=== PATIENT | female | born 1960 | race African-American/Black ===

== ENCOUNTER 2019-07-21 09:59 | Inpatient (IN) | payer OTHER ==
[~2019-07-21] VITALS: Ht 152.4 cm; Wt 79.8 kg
[~2019-07-21 09:59] MED LIST: ALBUTEROL INHAL17 GM INH; ANTIVERT25 MG PO; CELEXA40 MG; FLEXERIL PO; HYDROCHLOROTHIA25 M2 PO; LISINOPRIL20 MG PO; NORCO 5-325 TA1 EACH PO; PREDNISONE 20 M20 M1 PO; PREDNISONE5 GM; VENTOLIN HFA 1818 GM INH; ZIAC 10/6.25 MG10 MG PO; ZOFRAN ODT4 MG PO; ZPAK PO
[2019-07-21 10:04] VITALS: BP 167/96
[2019-07-21] MEDS ORDERED: SINGULAIR 10 MG10 M1 PO (10:10)
[2019-07-21 10:37] LABS: ABSOLUTE BASOPHILS 0.1 thou/uL (0.0-0.2); ABSOLUTE EOSINOPHILS 0.1 thou/uL (0.0-0.7); ABSOLUTE LYMPHOCYTES 1.7 thou/uL (0.8-5.3); ABSOLUTE MONOCYTES 0.6 thou/uL (0.0-1.2); ABSOLUTE NEUTROPHILS 2.9 thou/uL (1.6-8.1); BASOPHILS 1.2 %; EOSINOPHILS 2.8 %; HEMATOCRIT 41.6 % (37.0-47.0); LYMPHOCYTES 31.2 %; MCH 31.7 pg (26.0-34.0); MCHC 33.7 g/dL (28.0-37.0); MCV 94.1 fL (80.0-100.0); MONOCYTES 11.3 %; MPV 7.2 fl. (7.2-11.1); NUCLEATED RBCS 0 /100WBC; PLATELET COUNT* 270 thou/uL (150-400); POLYS 53.5 %; RBC 4.42 mil/uL (4.20-5.00); RDW-CV 12.6 % (10.5-14.5); WBC 5.3 thou/uL (4.0-11.0)
[2019-07-21 10:45] LABS: CALCIUM 9.1 mg/dL (8.5-10.1); CREATININE 0.8 mg/dL (0.6-1.3); POTASSIUM 3.6 mmol/L (3.5-5.1)
[2019-07-21 10:46] LABS: APTT 28.5 Seconds (25.0-31.3); PROTIME 10.4 Seconds (9.20-11.50)
[2019-07-21 11:00] LABS: ALBUMIN 3.4 g/dL (3.4-5.0); CK-MB MASS 1.5 ng/mL (<0.5-3.6); TOTAL BILIRUBIN 0.3 mg/dL (<0.1-1.0); TOTAL PROTEIN 7.5 g/dL (6.4-8.2)
[2019-07-21 11:13] LABS: URINE BILIRUBIN NEGATIVE (Negative); URINE BLOOD NEGATIVE (Negative); URINE CLARITY CLEAR; URINE COLOR YELLOW; URINE GLUCOSE-RANDOM NEGATIVE (Negative); URINE KETONES NEGATIVE (Negative); URINE LEUKOCYTES-REFLEX 1+ (Negative); URINE NITRITE-REFLEX NEGATIVE (Negative); URINE PROTEIN NEGATIVE (Negative); URINE SPECIFIC GRAVITY 1.015 (1.005-1.030); URINE UROBILINOGEN 0.2 E.U./dl (0.2-1.0)
[2019-07-21 11:25] LABS: SQUAMOUS 4-10 Moderate /LPF (0-3); URINE WBC-REFLEX 0-5 Rare /HPF (0-5)
[2019-07-21 11:26] LABS: BACTERIA-REFLEX >30 Many /HPF (None Seen); CASTS None Seen /LPF (None Seen); CRYSTALS None Seen /LPF (None Seen); MUCUS None Seen strn/LPF (None Seen); URINE RBC None Seen /HPF (0-2)
--- NOTE | 2019-07-21 12:14 | EKG ---
[place] [address] ELECTROCARDIOGRAM REPORT Name: BEBA GOODEN Room: [place] [address] ADM IN [facility]#: [id number] Admission: 07/21/19 Attend Phys: Wilian Agosto Discharge: Date of : 60 Date of Service: 07/21/19 [facility] Report #: [id number] THIS REPORT FOR: //name// [facility] ED Test Date: 2019-07-21 Test Time: 10:38:46 Pat Name: BEBA GOODEN Department: Room: [facility] Gender: F [employer]: [facility] : 1960 Requested By: Arvind Garzon Order Number: [id number] MD: Elia Harper Measurements Intervals [place] Rate: 73 P: 42 NM: 168 QRS: -53 QRSD: 115 T: 0 QT: 423 QTc: 467 Interpretive Statements Sinus rhythm Nonspecific IVCD with LAD Inferior infarct, old Compared to ECG 03/17/2016 07:22:26 Myocardial infarct finding still present Electronically Signed On 07-21-2019 12:12:52 [employer] [place] [employer] by Elia Harper [email or web address] <ELECTRONICALLY SIGNED> By: Elia Harper MD, [facility] 07/21/19 1212 1038 1038 Elia Harper MD, [facility] /EPI
[2019-07-21 15:56] VITALS: BP 137/67
--- NOTE | 2019-07-21 16:52 | 2DMMODE ---
[place] [address] 2 D/M-MODE ECHOCARDIOGRAM Name: BEBA GOODEN Room: [place] [address] ADM IN Sid#: [id number] Admission: 07/21/19 Attend Phys: Wilian Agosto Discharge: Date of : 60 Date of Service: 07/21/19 1651 Report #: [id number] THIS REPORT FOR: cc: Harvey Castro MD, Bruce D. MD Blick,Elia Cook MD [facility] ~ APPROVED REPORT Study performed: 07/21/2019 15:01:42 EXAM: Comprehensive 2D, Doppler, and color-flow Echocardiogram Patient Location: In-Patient Room #: er Status: routine BSA: 1.77 HR: 72 bpm BP: 168/81 mmHg Rhythm: NSR Other Information Study Quality: Good Indications CVA/TIA Echo Enhancing Agent Indication: Rule out Shunt Agent(s) / Amount(s) Used: Agitated Saline 10 cc 2D Dimensions IVSd: 9.57 (7-11mm) LVOT Diam: 19.51 (18-24mm) LVDd: 44.21 mm PWd: 8.62 (7-11mm) Ascending Ao: 25.50 (22-36mm) LVDs: 23.25 (25-40mm) Aortic Root: 27.35 mm Volumes Left Atrial Volume (Systole) LA ESV Index: 24.60 mL/m2 Aortic Valve AoV Peak Niall.: 1.34 m/s AO Peak Gr.: 7.23 mmHg LVOT Max P.77 mmHg AO Mean Gr.: 3.48 mmHg LVOT Mean P[place]41 [place] [address] 2 D/M-MODE ECHOCARDIOGRAM Name: BEBA GOODEN Room: [address] IN [facility]#: [id number] Admission: 07/21/19 Attend Phys: Wilian Agosto Discharge: Date of : 60 Date of Service: 07/21/19 1651 Report #: [id number] LVOT Max V: 1.20 m/s AO V2 VTI: 24.27 cm LVOT Mean V: 0.70 m/s KASSI (VTI): 2.67 cm2 LVOT V1 VTI: 21.67 cm Mitral Valve E/A Ratio: 0.64 MV Decel. Time: 337.73 ms MV E Max Niall.: 0.61 m/s MV PHT: 97.94 ms MVA (PHT): 2.25 cm2 TDI E/Lateral E': 6.10 E/Medial E': 5.55 Medial E' Niall.: 0.11 m/s Lateral E' Niall.: 0.10 m/s Pulmonary Valve PV Peak Niall.: 0.72 m/s PV Peak Gr.: 2.06 mmHg Left Ventricle The left ventricle is normal size. There is normal LV segmental wall motion. There is normal left ventricular wall thickness. Left ventricular systolic function is normal. The left ventricular ejection fraction is within the normal range. LVEF is 60-65%. Grade I - abnormal relaxation pattern. Right Ventricle The right ventricle is normal size. The right ventricular systolic function is normal. Atria The left atrium size is normal. The interatrial septum is intact with no evidence for an atrial septal defect. The right atrium size is normal. Aortic Valve The Aortic valve is sclerotic. No aortic regurgitation is present. There is no aortic valvular stenosis. Mitral Valve The mitral valve is normal in structure. There is no mitral valve regurgitation noted. No evidence of mitral valve stenosis. Tricuspid Valve The tricuspid valve is normal in structure. There is no tricuspid [place] [address] 2 D/M-MODE ECHOCARDIOGRAM Name: ELOISE GOODENORALeonor Powell Room: [address] IN [facility]#: [id number] Admission: 07/21/19 Attend Phys: Wilian Agosto Discharge: Date of : 60 Date of Service: 07/21/19 1651 Report #: [id number] Pulmonic Valve The pulmonary valve is normal in structure. Trace pulmonic regurgitation. Great Vessels The aortic root is normal in size. IVC is normal in size and collapses >50% with inspiration. Pericardium There is no pericardial effusion. <Conclusion> LVEF is 60-65%. The Aortic valve is sclerotic. The interatrial septum is intact with no evidence for an atrial septal defect. <ELECTRONICALLY SIGNED> By: Elia Harper MD, FACC 07/21/19 165 [id number] 165 Elia Harper MD, FACC /INF
[2019-07-21 20:00] VITALS: BP 112/67
[2019-07-21 20:05] VITALS: BP 132/61
[2019-07-22] VITALS: BP 136/61
[2019-07-22 02:06] LABS: GLYCOHEMOGLOBIN (HGB A1C) 5.5 % (4.8-5.6)
[2019-07-22 04:00] VITALS: BP 138/65
[2019-07-22 05:50] LABS: CHOLESTEROL 213 mg/dL (<200); HDL CHOLESTEROL 54 mg/dL (>40); LDL CHOLESTEROL 149 mg/dL (<100); TC:HDL 3.9 Ratio (Not establshd); TRIGLYCERIDE 50 mg/dL (<150); VLDL 10 mg/dL (<40)
[2019-07-22 05:52] LABS: SERUM ASSESSMENT Clear
[2019-07-22 08:00] VITALS: BP 150/84
[2019-07-22 11:12] VITALS: BP 117/51
--- NOTE | 2019-07-22 11:13 | EKG ---
[place] [address] ELECTROCARDIOGRAM REPORT Name: BEBA GOODEN Room: [address] ADM IN .R.#: [id number] Admission: 07/21/19 Attend Phys: Wilian Agosto Discharge: Date of : 60 Date of Service: 07/22/19 0908 Report #: [id number] THIS REPORT FOR: //name// [facility] Test Date: 2019-07-22 Test Time: 09:08:52 Pat Name: BEBA GOODEN Department: Room: [facility] Gender: F [employer]: DEV : 1960 Requested By: Wilian Agosto Order Number: [id number] Reading MD: Elia Harper Measurements Intervals [place] Rate: 74 P: 70 MN: 159 QRS: -63 QRSD: 123 T: -40 QT: 401 QTc: 445 Interpretive Statements Sinus rhythm Probable left atrial enlargement Nonspecific IVCD with LAD Nonspecific T abnormalities, diffuse leads Compared to ECG 07/21/2019 10:38:46 no change Electronically Signed On 07-22-2019 11:12:46 [employer] by Elia Harper [email or web address] <ELECTRONICALLY SIGNED> By: Elia Harper MD, [facility] 07/22/19 1112 0908 0908 Elia Harper MD, [facility] /EPI
[2019-07-22 17:50] VITALS: BP 128/85
[2019-07-22 19:30] VITALS: BP 113/62
[2019-07-23] VITALS: BP 123/49
[2019-07-23 04:24] VITALS: BP 113/57
[2019-07-23 07:45] VITALS: BP 128/77
[2019-07-23 12:12] VITALS: BP 125/53
[2019-07-23] MEDS ORDERED: COREG6.25 MG PO (13:46)
[2019-07-23] MEDS ORDERED: LIPITOR40 MG PO (13:46)
[2019-07-23] MEDS ORDERED: LOTENSIN20 MG PO (13:46)
[2019-07-23] MEDS ORDERED: KEFLEX500 M1 PO (13:46)
[2019-07-23 14:43] VITALS: BP 125/53
[2019-07-23] MEDS ORDERED: TYLENOL325 MG PO (14:54)
[2019-07-23] MEDS ORDERED: ADULT LOW DOSE81 MG PO (14:57)
== END 2019-07-23 15:27 | disposition home or self-care (01) | DRG 69 ==
LOC: M.ERS 09:59 → M.TBA-ER 11:24 → M.2W 11:24
PROVIDERS: Family Medicine; ADMIT Internal Medicine
DX: G45.9 Transient cerebral ischemic attack, unspecified (principal); J45.901 Unspecified asthma with (acute) exacerbation; I10 Essential (primary) hypertension; F32.9 Major depressive disorder, single episode, unspecified; F41.9 Anxiety disorder, unspecified; I16.0 Hypertensive urgency; E78.00 Pure hypercholesterolemia, unspecified; G43.909 Migraine, unspecified, not intractable, without status migrainosus; Z90.49 Acquired absence of other specified parts of digestive tract; Z98.891 History of uterine scar from previous surgery; Z79.899 Other long term (current) drug therapy; Z79.51 Long term (current) use of inhaled steroids; Z88.8 Allergy status to other drugs, medicaments and biological substances; Z82.49 Family history of ischemic heart disease and other diseases of the circulatory system; Z86.73 Personal history of transient ischemic attack (TIA), and cerebral infarction without residual deficits; Z87.891 Personal history of nicotine dependence

== ENCOUNTER → 2019-09-22 | Outpatient (CLI) | payer OTHER ==
[~2019-09-22] MED LIST changes: +ADULT LOW DOSE81 MG PO; +COREG6.25 MG PO; +KEFLEX500 M1 PO; +LIPITOR40 MG PO; +LOTENSIN20 MG PO; +SINGULAIR 10 MG10 M1 PO; +TYLENOL325 MG PO
== END ==
LOC: M.RAD 09:17
DX: Z12.31 Encounter for screening mammogram for malignant neoplasm of breast (principal)